=== PATIENT | female | born 1980 | race Caucasian/White ===

== ENCOUNTER 2018-07-05 07:25 | Day surgery (SDC) | payer OTHER ==
[~2018-07-05 07:25] MED LIST: CLIN150 PO; DEXA4 PO; HYDACE5 PO; HYDCOR1TC TOP; LIDOCAINE-PRIL1 EACH TOP; Lomotil Tablet1 EACH PO; Lorazepam0.5 MG PO; OXYACE7.5T PO; RXHYDACE PO; RXOXYACE PO; Zofran8 MG PO; Zoladex3.6 MG SC
== END 2018-07-05 23:09 | disposition home or self-care (01) ==
LOC: MOI MAM 07:25
DX: C50.912 Malignant neoplasm of unspecified site of left female breast (principal); Z85.3 Personal history of malignant neoplasm of breast; Z17.0 Estrogen receptor positive status [ER+]
CPT/HCPCS: 19083; 76830; 77065; 88305; 88360; A4648

== ENCOUNTER 2018-08-30 06:40 | Day surgery (SDC) | payer OTHER ==
[~2018-08-30] VITALS: Ht 157.5 cm; Wt 59.1 kg
[~2018-08-30 06:40] MED LIST changes: +VITAMIN D5000 UNIT PO
--- NOTE | 2018-08-30 07:03 | NUR ---
INTO SDS ADMISSION TO UNIT STARTED. VSS NPO AGREES WITH SCHEDULED SURGERY
[2018-08-30] MEDS ORDERED: KADCYLA (07:08)
[2018-08-30] MEDS ORDERED: LETR2.5 PO (07:09)
--- NOTE | 2018-08-30 08:07 | NUR ---
UP TO BATHROOM AT THIS TIME.
--- NOTE | 2018-08-30 10:10 | NUR ---
Patient up to Ambulate independently. Gait steady. Discharge instructions reviewed with patient. Patient verbalizes understanding. Copy given to patient to take home. Patient States Post-Procedure ride home has been arranged. Discharged via wheelchair to private car for ride home.
== END 2018-08-30 23:10 | disposition home or self-care (01) ==
LOC: ORSCMMR 06:40 → ORD 08:15 → ORSCMMR 23:10
PROVIDERS: Surgery
PROC: B5161ZA Fluoroscopy of Right Subclavian Vein using Low Osmolar Contrast, Guidance (ICD-10-PCS; principal; 2018-08-30 08:15)
PROC: 05H533Z Insertion of Infusion Device into Right Subclavian Vein, Percutaneous Approach (ICD-10-PCS; principal; 2018-08-30 08:15)
DX: C50.319 Malignant neoplasm of lower-inner quadrant of unspecified female breast (principal); Z79.899 Other long term (current) drug therapy
CPT/HCPCS: 77001; C1788; J0690; J1100; J1642; J1885; J2250; J2405; J2704; J3010; J7120

== ENCOUNTER → 2019-03-05 | Outpatient (CLI) | payer OTHER ==
[~2019-03-05] MED LIST changes: +KADCYLA; +LETR2.5 PO
[2019-03-05 18:17] LABS: Source, Urine Clean Catch
[2019-03-05 19:19] LABS: Bilirubin, Urine Neg (Neg); Blood, Urine Neg (Neg); Glucose Qualitative, Urine Neg (Neg); Ketones, Urine Neg (Neg); Leukocyte Esterase, Urine Neg (Neg); Nitrite, Urine Neg (Neg); Protein, Urine 1+ (Neg); Specific Gravity, Urine 1.015 (1.003-1.022); Urobilinogen, Urine NORM (Normal); pH, Urine 6.5 (5.0-8.0)
[2019-03-05 19:34] LABS: Appearance, Urine Clear (Clear); Color, Urine Yellow (P-Yellow)
[2019-03-10 15:06] LABS: A/G RATIO 1.1 (0.7-1.7); ALBUMIN 3.5 g/dL (2.9-4.4); ALPHA-1-GLOBULIN 0.1 g/dL (0.0-0.4); ALPHA-2-GLOBULIN 0.8 g/dL (0.4-1.0); BETA GLOBULIN 1.1 g/dL (0.7-1.3); GAMMA GLOBULIN 1.2 g/dL (0.4-1.8); GLOBULIN, TOTAL 3.2 g/dL (2.2-3.9); IMMUNOGLOBULIN A, QN, SERUM 205 mg/dL (87-352); IMMUNOGLOBULIN G, QN, SERUM 1212 mg/dL (700-1600); IMMUNOGLOBULIN M, QN, SERUM 72 mg/dL (26-217); M-SPIKE Not Observed g/dL (Not Observed); PROTEIN, TOTAL, SERUM 6.7 g/dL (6.0-8.5)
== END | disposition home or self-care (01) ==
LOC: LAB SHORT 18:12 → OLS 18:12
PROVIDERS: Internal Medicine Hematology & Oncology
DX: C50.919 Malignant neoplasm of unspecified site of unspecified female breast (principal)
CPT/HCPCS: 82784; 84165; 86334

== ENCOUNTER 2020-09-09 16:56 | Emergency (ER) | payer OTHER ==
[~2020-09-09] VITALS: Ht 157.5 cm; Wt 59.0 kg
[2020-09-09 17:57] LABS: BASOPHILS ABSOLUTE AUTO 0.04 K/mm3 (0.00-0.23); BASOPHILS PERCENT AUTO 0 % (0-2); EOSINOPHILS ABSOLUTE AUTO 0.11 K/mm3 (0.00-0.68); EOSINOPHILS PERCENT AUTO 1 % (0-6); Hematocrit 42.2 % (33.0-51.0); Hemoglobin 14.1 g/dL (11.5-16.0); IMMATURE GRAN ABSOLUTE AUTO 0.02 K/mm3 (0.00-0.10); IMMATURE GRAN PERCENT AUTO 0 % (0-1); LYMPHOCYTES ABSOLUTE AUTO 3.59 K/mm3 (0.84-5.20); LYMPHOCYTES PERCENT AUTO 40 % (21-46); MONOCYTES ABSOLUTE AUTO 0.59 K/mm3 (0.16-1.47); MONOCYTES PERCENT AUTO 7 % (4-13); Mean Corpuscular HGB Conc 33.4 g/dL (31.5-36.5); Mean Corpuscular Volume 96 fL (80-100); Mean Platelet Volume 11.1 fL (9.1-12.4); NEUTROPHILS ABSOLUTE AUTO 4.73 K/mm3 (1.96-9.15); NEUTROPHILS PERCENT AUTO 52 % (41-73); Platelet Count 262 K/mm3 (150-400); RDW Coefficient Variation 13.7 % (11.7-14.2); RDW Standard Deviation 48.3 fL (35.1-46.3); Red Blood Cell Count 4.41 M/mm3 (3.80-5.20); White Blood Cell Count 9.08 K/mm3 (4.00-11.30)
[2020-09-09 18:19] LABS: Alanine Aminotransfer (ALT/SGP 30 U/L (12-78); Albumin, Blood 3.8 g/dL (3.4-5.0); Albumin/Globulin Ratio 0.9 (0.8-1.8); Alk Phos 111 U/L (50-136); Anion Gap 4 mmol/L (6-16); Aspartate Aminotrans (AST/SGOT 19 U/L (12-37); Bilirubin, Total 0.6 mg/dL (0.1-1.0); Blood Urea Nitrogen 9 mg/dL (8-24); Bun/Creatinine Ratio 10.1 (12.0-20.0); CO2, Blood 28 mmol/L (21-32); Calcium, Blood 9.7 mg/dL (8.5-10.1); Chloride, Blood 106 mmol/L (98-108); Creatinine, Blood 0.89 mg/dL (0.40-1.00); Globulin, Blood 4.2 g/dL (2.2-4.0); Glomerular Filtration Rate >60 (60-); Glucose, Blood 97 mg/dL (70-99); Potassium, Blood 3.7 mmol/L (3.5-5.5); Sodium, Blood 138 mmol/L (136-145)
== END 2020-09-09 19:25 | disposition home or self-care (01) ==
LOC: ER 16:56
PROVIDERS: Physician Assistant
DX: D49.6 Neoplasm of unspecified behavior of brain (principal); R25.1 Tremor, unspecified; F17.210 Nicotine dependence, cigarettes, uncomplicated
CPT/HCPCS: 36415; 70450; 80053; 85025; 99284-25

== ENCOUNTER 2022-12-17 16:12 | Inpatient (IN) | payer OTHER ==
[~2022-12-17] VITALS: Ht 157.5 cm; Wt 57.9 kg
[2022-12-17 16:48] LABS: BASOPHILS ABSOLUTE AUTO 0.04 K/mm3 (0.00-0.23); BASOPHILS PERCENT AUTO 0 % (0-2); EOSINOPHILS ABSOLUTE AUTO 0.03 K/mm3 (0.00-0.68); EOSINOPHILS PERCENT AUTO 0 % (0-6); Hematocrit 38.9 % (33.0-51.0); Hemoglobin 13.9 g/dL (11.5-16.0); IMMATURE GRAN ABSOLUTE AUTO 0.03 K/mm3 (0.00-0.10); IMMATURE GRAN PERCENT AUTO 0 % (0-1); LYMPHOCYTES ABSOLUTE AUTO 1.04 K/mm3 (0.84-5.20); LYMPHOCYTES PERCENT AUTO 11 % (21-46); MONOCYTES ABSOLUTE AUTO 0.69 K/mm3 (0.16-1.47); MONOCYTES PERCENT AUTO 7 % (4-13); Mean Corpuscular HGB 37.1 pg (26.0-34.0); Mean Corpuscular HGB Conc 35.7 g/dL (31.5-36.5); Mean Corpuscular Volume 104 fL (80-100); Mean Platelet Volume 13.4 fL (9.1-12.4); NEUTROPHILS ABSOLUTE AUTO 7.51 K/mm3 (1.96-9.15); NEUTROPHILS PERCENT AUTO 81 % (41-73); Platelet Count 163 K/mm3 (150-400); RDW Standard Deviation 53.6 fL (35.1-46.3); Red Blood Cell Count 3.75 M/mm3 (3.80-5.20); White Blood Cell Count 9.34 K/mm3 (4.00-11.30)
[2022-12-17 17:18] LABS: Albumin, Blood 3.2 g/dL (3.4-5.0); Albumin/Globulin Ratio 0.9 (0.8-1.8); Bilirubin, Total 1.4 mg/dL (0.1-1.0); Bun/Creatinine Ratio 20.5 (12.0-20.0); Calcium, Blood 9.6 mg/dL (8.5-10.1); Creatinine, Blood 0.88 mg/dL (0.40-1.00); Globulin, Blood 3.5 g/dL (2.2-4.0); Total Protein, Blood 6.7 g/dL (6.4-8.2)
[2022-12-17 23:57] LABS: Source, Urine Clean Catch
[2022-12-18 00:03] LABS: Blood, Urine Neg (Neg); Glucose Qualitative, Urine Neg (Neg); Ketones, Urine 3+ (Neg); Leukocyte Esterase, Urine 3+ (Neg); Nitrite, Urine Neg (Neg); Protein, Urine 2+ (Neg); Specific Gravity, Urine 1.005 (1.003-1.022); Urobilinogen, Urine 2+ (Normal)
[2022-12-18 00:04] LABS: Appearance, Urine Hazy (Clear); Bilirubin, Urine 1+ (Neg); Color, Urine Amber (P-Yellow)
[2022-12-18 00:16] LABS: Bacteria Many /hpf; Red Blood Cells, Urine Not Seen /hpf (0-2); Squamous Epithelial Cells Many /hpf (Few); White Blood Cells, Urine 25-50 /hpf (0-5)
[2022-12-18 02:50] VITALS: BP 102/67
[2022-12-18 04:57] LABS: Bun/Creatinine Ratio 14.9 (12.0-20.0); Calcium, Blood 8.4 mg/dL (8.5-10.1); Creatinine, Blood 0.81 mg/dL (0.40-1.00); Magnesium, Blood 2.4 mg/dL (1.6-2.4); Potassium, Blood 3.7 mmol/L (3.5-5.5)
--- NOTE | 2022-12-18 05:19 | NUR ---
ARRIVAL TO PCU/SHIFT SUMMARY: RECEIVED REPORTED FROM FEATURES EDITOR KAIT RANDALL, PT SHORTLY ARRIVED TO PCU 12 ~0300 THIS AM. TRANSFERRED FROM [facility] TO PCU BED VIA SLIDE SHEET. A/Ox4 AND COOPERATIVE [facility]. ANSWERS QUESTIONS APPROPRIATELY AND ABLE TO MAKE HER NEEDS KNOWN. CARDIAC, SR 80-90'S WITH NO REPORTS OF CP, PRESSURE, OR DIZZINESS. SBP SOFT BUT STABLE RANGING 90-100'S. RESPIRATORY, MAINTAINS SPO2 >94% ON RA WITH NO REPORTS OF SOB OR DYSPNEA WHILE AT REST. LS CLEAR T/O. GI/, BS PRESENT IN ALL QUADRANTS, DENIES ABD PAIN/TENDERNESS. DENIES ANY ACTIVE NAUSEA UPON ARRIVAL. INCONTINENT OF URINE, PUREWICK SYSTEM PUT IN PLACE AND CONNECTED TO SUCTION. PALLATIVE CARE CONSULT IN PLACE WITH THE HOPES OF FAMILY MEETING TOMORROW TO DISCUSS CODE STATUS. ASSESSED PT FOR RISKS OF ANY IGNITION SOURCES WELL BEHAVIORS FOR INCREASED RISKS OF FIRE DANGER. PT EDUCATED ON COMMON SOURCES OF IGNITION WELL NEED TO KEEP A SAFE ENVIRONMENT. PT VOICED UNDERSTANDING. NO NEW ORDERS AT THIS TIME, WILL REPORT TO ONCOMING RN. DONY PADGETT OF THIS NOTE.
[2022-12-18 07:46] VITALS: BP 96/67
--- NOTE | 2022-12-18 10:43 | NUR ---
AM NOTES: PT ALERT AND ORIENTED X3, FLAT AND WITHDRAWN SON AT THE BEDSIDE. PT HAS MILD LEFT FACIAL DROOP AND LEFT SIDED WEAKNESS PER SON ITS HER BASELINE DUE TO HER BRAIN TUMOR. SPEECH IS SLIGHTLY MUMBLED WELL. PT WAS HAVING PAIN ON THE RIGHT KNEE REFUSED ANY PAIN MEDS THIS MORNING, PT MOSTLY REFER TO SON TO COMMUNICATE NEEDS, SON INSISTED THAT SHE HAS THIS PAIN SINCE THIS MORNING BUT PT KEEPS INSISTING SHE DOESNT NEED ANYTHING WANTING TO GO HOME, PT AND SON WAS GIVEN AN UPDATE REGARDING PLAN OF CARE PT STATED SHE WANTS TO GO HOME IT DOESNT MATTER IF SHE HAS HOSPICE OR NOT. TALKED TO TECHNICAL MGR ALSO DELORES IN PALLIATIVE CARE ABLE TO DISCUSS HOSPICE WITH PT'S MOTHER AND SON IN THE ROOM AND AGREED TO GET PT HOSPICE REFERRAL. PAIN MEDS WAS GIVEN WELL PER FAMILY'S REQUEST. NS RUNNING AND 125MLS/HR, VITALS HAS BEEN STABLE. NO OTEHR ISSUES AT THIS TIME. CALL LIGHTS IN REACH WILL CONTINUE TO MONTIOR
[2022-12-18 11:44] VITALS: BP 100/74
[2022-12-18] MEDS ORDERED: ONDA4 PO (14:22)
[2022-12-18] MEDS ORDERED: Percocet 5-3251 EACH PO (14:23)
--- NOTE | 2022-12-18 14:36 | NUR ---
Spiritual care visit conducted. Patient is lying in bed and alert. She has her son Matthew and mother Rosanne bedside. Patient is very spunky and passionate about going home, smoking a cigarette, and having family close. She talks about having a connection to the divine and is tearful when I mention God's love and connection to her. Patient welcomes prayer and showed signs of being heard and valued. I will cotninue to remain available to patient and family.
--- NOTE | 2022-12-18 16:13 | NUR ---
PT DISCHARGE HOME WITH DISCHARGE ORDERS, HOSPICE REFERRAL IN AM VIA [facility]. MOM AT THE BEDSIDE UPON DISCHARGE. PRESCRIPTION SENT TO [facility] HARD SCRIPT FOR PERCOCET SENT WITH THE PT. PT WAS GIVEN ONE TIME DOSE OF IBUPROFEN FOR KNEE PAIN PRIOR TO DISCHARGE. TRANSPORTATION CAME TO SUBMARINE OPERATOR PT AT 1600, ALL BELONGINGS SENT WITH THE PT
== END 2022-12-18 16:02 | disposition hospice, home (50) | DRG 640 ==
LOC: ER 16:12 → PCU 22:59
PROVIDERS: Emergency Medicine; Student in an Organized Health Care Education/Training Program; ADMIT Internal Medicine
DX: E87.6 Hypokalemia (principal); G93.6 Cerebral edema; C79.31 Secondary malignant neoplasm of brain; C50.919 Malignant neoplasm of unspecified site of unspecified female breast; E87.1 Hypo-osmolality and hyponatremia; E86.0 Dehydration; Z66 Do not resuscitate; Z51.5 Encounter for palliative care; R41.0 Disorientation, unspecified; F17.210 Nicotine dependence, cigarettes, uncomplicated; Z88.5 Allergy status to narcotic agent; Z79.899 Other long term (current) drug therapy; Z90.722 Acquired absence of ovaries, bilateral; Z98.890 Other specified postprocedural states; Z98.51 Tubal ligation status
CPT/HCPCS: 36415; 70470; 80048; 80053; 81001; 83735; 85025; 93005; 93010; 96361; 96365-59; 96366-59; 96368; 96375-59; 99285-25; A9270; J2405; J3010; J3475; J3480; J7030; J7040; J7050; Q9967